=== PATIENT | female | born 1955 | race Caucasian/White ===

== ENCOUNTER → 2016-08-23 | Outpatient (REF) | payer BC | LOC: M LAB REF 18:16 | PROVIDERS: ATTEND Physician Assistant Medical | DX: J11.1 Influenza due to unidentified influenza virus with other respiratory manifestations (principal) ==

== ENCOUNTER → 2016-12-16 | Outpatient (CLI) | payer BC ==
[~2016-12-16] VITALS: Ht 154.9 cm; Wt 54.4 kg
[~2016-12-16] MED LIST: BLAC40CA2 PO; CALC600T21 PO; FISH1360 PO; LIDOCAINE 2% INJ 100 MG/5 ML SDV (FOR ANES.) As Ordered ONE; MAGN1TAB25 PO; NS 1,000 ML IV ONE; OMEP40CA2 PO; PRAV1TAB39 PO; PRIL20CA9 PO; PROPOFOL 500 MG/50 ML VIAL As Ordered ONE; PROTANDIM PO; SODI650T PO; VITA-122 PO; VITA100T20 PO; VITATAB11 PO
--- NOTE | 2016-12-16 09:56 | ROOR ---
Patient Name: Jessica Cisse Procedure Date: 12/16/2016 9:40 AM Date of : 1955 Age: 61 Room: [facility] Gender: Female Note Status: Finalized Procedure: Upper Endoscopy + Biopsies Indications: Heartburn, Failure to respond to medical treatment Providers: Shabbir Parson MD Referring MD: DENISE HANSON NP Requesting Provider: Medicines: Monitored Anesthesia Care Complications: No immediate complications. Procedure: Pre-Anesthesia Assessment: - The heart rate, respiratory rate, oxygen saturations, blood pressure, adequacy of pulmonary ventilation, and response to care were monitored throughout the procedure. The Endoscope was introduced through the mouth, and advanced to the second part of duodenum. The upper GI endoscopy was accomplished without difficulty. The patient tolerated the procedure well. Findings: The Z-line was variable and was found 40 cm from the incisors. Multiple biopsies were obtained with cold forceps for evaluation to rule out Gallagher's Esophagus randomly at the gastroesophageal junction. Mucosal changes including feline appearance were found in the middle third of the esophagus. Biopsies were taken with a cold forceps for histology. Verification of patient identification for the specimen was done. No other significant abnormalities were identified in a careful examination of the stomach. The exam of the duodenum was otherwise normal. Impression: - Z-line variable, 40 cm from the incisors. - Esophageal mucosal changes suggestive of eosinophilic esophagitis. Biopsied. - Multiple biopsies were obtained at the gastroesophageal junction. - The examination was otherwise normal. Recommendation: - Patient has a contact number available for emergencies. The signs and symptoms of potential delayed complications were discussed with the patient. Return to normal activities tomorrow. Written discharge instructions were provided to the patient. - High fiber diet. - Discharge patient to home. - Continue present medications. - Await pathology results. - Telephone GI clinic for pathology results in 1 week. - Return to referring physician. - The findings and recommendations were discussed with the patient's family. - Check Portal Online for Path Results.([email or web address]) Shabbir Parson MD Shabbir Parson MD 12/16/2016 9:56:44 AM This report has been signed electronically. Number of Addenda: 0 Note Initiated On: 12/16/2016 9:40 AM Estimated Blood Loss: Estimated blood loss: none.
--- NOTE | 2016-12-16 10:14 | ROOR ---
Patient Name: Jessica Cisse Procedure Date: 12/16/2016 9:41 AM Date of : 1955 Age: 61 Room: [facility] Gender: Female Note Status: Finalized Procedure: Total Colonoscopy to Cecum Indications: Family history of colonic polyps in a first-degree relative Providers: Shabbir Parson MD Referring MD: DENISE HANSON NP Requesting Provider: Medicines: Monitored Anesthesia Care Complications: No immediate complications. Procedure: Pre-Anesthesia Assessment: - The heart rate, respiratory rate, oxygen saturations, blood pressure, adequacy of pulmonary ventilation, and response to care were monitored throughout the procedure. The Colonoscope was introduced through the anus and advanced to the cecum, identified by appendiceal orifice and ileocecal valve. The colonoscopy was performed without difficulty. The patient tolerated the procedure well. The quality of the bowel preparation was excellent. Findings: The perianal and digital rectal examinations were normal. No other significant abnormalities were identified in a careful examination of the remainder of the colon. The exam was otherwise without abnormality on direct and retroflexion views. Impression: - The examination was otherwise normal on direct and retroflexion views. - No specimens collected. - The exam was otherwise normal to the cecum. Recommendation: - Patient has a contact number available for emergencies. The signs and symptoms of potential delayed complications were discussed with the patient. Return to normal activities tomorrow. Written discharge instructions were provided to the patient. - High fiber diet. - Discharge patient to home. - Continue present medications. - Repeat colonoscopy in 5 years for screening purposes. - Return to referring physician. - The findings and recommendations were discussed with the patient's family. Shabbir Parson MD Shabbir Parson MD 12/16/2016 10:14:08 AM This report has been signed electronically. Number of Addenda: 0 Note Initiated On: 12/16/2016 9:41 AM Estimated Blood Loss: Estimated blood loss: none.
[2016-12-16 10:30] VITALS: BP 128/70
== END ==
LOC: M OPP 08:25
PROVIDERS: ATTEND Internal Medicine Gastroenterology
DX: Z12.11 Encounter for screening for malignant neoplasm of colon (principal); Z83.71 Family history of colonic polyps; K22.8 Other specified diseases of esophagus; K20.9 Esophagitis, unspecified; R12 Heartburn; K21.9 Gastro-esophageal reflux disease without esophagitis; E78.5 Hyperlipidemia, unspecified; K87 Disorders of gallbladder, biliary tract and pancreas in diseases classified elsewhere; R31.9 Hematuria, unspecified; Z87.891 Personal history of nicotine dependence

== ENCOUNTER → 2017-01-16 | Outpatient (REF) | payer BC ==
[~2017-01-16] MED LIST changes: -CALC600T21 PO; +CALC600T60 PO; -LIDOCAINE 2% INJ 100 MG/5 ML SDV (FOR ANES.) As Ordered ONE; -NS 1,000 ML IV ONE; -PROPOFOL 500 MG/50 ML VIAL As Ordered ONE
== END ==
LOC: M SFHCWAGY 15:20
PROVIDERS: ATTEND Nurse Practitioner Women's Health
DX: Z12.4 Encounter for screening for malignant neoplasm of cervix (principal)

== ENCOUNTER → 2017-01-21 | Outpatient (CLI) | payer BC ==
--- NOTE | 2017-01-21 14:26 | REP ---
Pelvic ultrasound including transabdominal and endovaginal ultrasound assessment: The bladder is adequately distended. The uterus is retroverted and normal to small size measuring 5.5 x 2.4 by 4.0 cm. The endometrium is not thickened measuring 3.4 mm. The ovaries are normal size. Right ovary measures 2.2 x 1.2 x 1.1 cm. There is a 1 cm right ovarian follicle. Left ovary measures 1.8 by 0.9 x 1.2 cm. There are no dominant ovarian masses or cyst. There is no free fluid. Impression: Retroverted uterus. Otherwise, negative pelvic ultrasound. The right ovary is normal size. There is a 1 cm right ovarian follicle. There is no dominant mass or cyst.
== END ==
LOC: M WHC 12:58
PROVIDERS: ATTEND Nurse Practitioner Women's Health
DX: N83.8 Other noninflammatory disorders of ovary, fallopian tube and broad ligament (principal); Z87.42 Personal history of other diseases of the female genital tract

== ENCOUNTER → 2017-01-22 | Outpatient (REF) | payer BC | LOC: M SFHCWAGY 12:28 | PROVIDERS: ATTEND Nurse Practitioner Women's Health | DX: N83.201 Unspecified ovarian cyst, right side (principal); Z78.0 Asymptomatic menopausal state ==

== ENCOUNTER → 2017-04-28 | Outpatient (CLI) | payer BC ==
--- NOTE | 2017-04-28 16:12 | REP ---
LEFT KNEE SERIES: Five views of the left knee are performed. There is no acute fracture or dislocation. There is mild medial joint space narrowing with subchondral sclerosis. There is mild superior patellar spurring. I do not see a significant joint effusion. IMPRESSION: Mild degenerative changes. Signed by Tyron Ross MD 04/28/2017 04:37 P
== END ==
LOC: M WUC 15:12
PROVIDERS: ATTEND Physician Assistant
DX: M25.562 Pain in left knee (principal); M17.12 Unilateral primary osteoarthritis, left knee

== ENCOUNTER → 2017-07-23 | Outpatient (CLI) | payer BC | LOC: M WHC 14:12 | DX: R10.2 Pelvic and perineal pain (principal); N83.201 Unspecified ovarian cyst, right side; Z78.0 Asymptomatic menopausal state; Z87.42 Personal history of other diseases of the female genital tract | CPT/HCPCS: 76830 ==

== ENCOUNTER → 2018-01-20 | Outpatient (REF) | payer BC | LOC: M SFHCWAGY 10:30 | DX: Z12.4 Encounter for screening for malignant neoplasm of cervix (principal) | CPT/HCPCS: G0123 ==

== ENCOUNTER → 2018-05-15 | Outpatient (CLI) | payer BC | LOC: M WHC 14:47 | DX: Z12.31 Encounter for screening mammogram for malignant neoplasm of breast (principal); Z92.89 Personal history of other medical treatment; Z92.0 Personal history of contraception; Z92.29 Personal history of other drug therapy; Z80.3 Family history of malignant neoplasm of breast | CPT/HCPCS: 77067 ==

== ENCOUNTER 2019-01-19 12:24 | Day surgery (SDC) | payer BC ==
[~2019-01-19] VITALS: Ht 154.9 cm; Wt 52.6 kg
[~2019-01-19 12:24] MED LIST changes: +CARA1TAB6 PO; +CVS1CAP2 PO; -MAGN1TAB25 PO; +MAGN1TAB26 PO; +MULTCAP PO; +OMEP20CA4 PO; -VITA100T20 PO; +VITA100T51 PO
[2019-01-19] MEDS ORDERED: NS 1,000 ML IV ONE (13:00)
[2019-01-19] MEDS ORDERED: LIDOCAINE 2% INJ 100 MG/5 ML SDV (FOR ANES.) As Ordered ONE (13:44)
[2019-01-19] MEDS ORDERED: PROPOFOL 200 MG/20 ML VIAL As Ordered ONE ×2 (13:44→14:25)
--- NOTE | 2019-01-19 14:10 | ROOR ---
Patient Name: Jessica Cisse Procedure Date: 01/19/2019 1:43 PM Date of : 1955 Age: 63 Room: [facility] Gender: Female Note Status: Finalized Procedure: Upper GI endoscopy Indications: Epigastric abdominal pain, Heartburn Providers: Aakash TRENT MD Referring MD: DENISE HANSON NP Requesting Provider: Medicines: Monitored Anesthesia Care Complications: No immediate complications. Procedure: Pre-Anesthesia Assessment: - The heart rate, respiratory rate, oxygen saturations, blood pressure, adequacy of pulmonary ventilation, and response to care were monitored throughout the procedure. The Endoscope was introduced through the mouth, and advanced to the second part of duodenum. The upper GI endoscopy was accomplished without difficulty. The patient tolerated the procedure well. Findings: The examined esophagus was normal. Small Hiatal Hernia. The Z-line was regular and was found 40 cm from the incisors. The entire examined stomach was normal. The examined duodenum was normal. The MOTT capsule with delivery system was introduced through the mouth and advanced into the esophagus, such that the MOTT pH capsule was positioned 35 cm from the incisors, which was 5 cm proximal to the GE junction. The MOTT pH capsule was then deployed and attached to the esophageal mucosa. The delivery system was then withdrawn. Endoscopy was utilized for probe placement and diagnostic evaluation. The scope was reinserted to evaluate placement of the MOTT capsule. Visualization showed the MOTT capsule to be in an appropriate position. Impression: - Normal esophagus. - Small Hiatal Hernia. - Z-line regular, 40 cm from the incisors. - Normal stomach. - Normal examined duodenum. - No specimens collected. Recommendation: - Telephone endoscopist for study results in 2 weeks. - Instructions: Avoid all reflux medications for next 48 hrs. (i.e. Avoid all the following for the next 48 hours: Prilosec/Omeprazole, Nexium, Prevacid/Lansoprazole, Dexilant, Zegerid/Omeprazole, Aciphex/Rabeprazole, Protonix/Pantoprazole, Zantac/Ranitidine, Pepcid/Famotidine, Tagamet). You may take tums, rolaids or maalox for severe symptoms, but try to limit this as well. Do not try to avoid your usual triggers for your symptoms for next 48 hrs. (If you have known "triggers" for your symptoms such as caffeine, fatty foods, laying down after meals etc, it is actually encouraged that you do try to produce your symptoms as much as possible over next 48 hrs.) Aakash Trent MD Aakash TRENT MD 01/19/2019 2:09:55 PM Electronically signed by Aakash TRENT MD Number of Addenda: 0 Note Initiated On: 01/19/2019 1:43 PM Estimated Blood Loss: Estimated blood loss: none. Estimated blood loss: none.
[2019-01-19 14:25] VITALS: BP 120/70
== END 2019-01-19 14:41 | disposition home or self-care (01) ==
LOC: M OPP 12:24
PROVIDERS: ATTEND Internal Medicine Gastroenterology
DX: K44.9 Diaphragmatic hernia without obstruction or gangrene (principal); R10.13 Epigastric pain; K21.9 Gastro-esophageal reflux disease without esophagitis; Z79.899 Other long term (current) drug therapy; Z91.040 Latex allergy status

== ENCOUNTER → 2019-07-01 | Outpatient (CLI) | payer BC ==
[~2019-07-01] MED LIST changes: +OMEP-172 PO; -OMEP20CA4 PO; -OMEP40CA2 PO; +OMEP40CA97 PO
--- NOTE | 2019-07-01 09:01 | REPMRS ---
Patient History The patient states she had a clinical breast exam in January 2019.Family history of breast cancer at age 50 or over in paternal aunt, breast cancer at age 81 in mother. Benign excisional biopsy of the left breast, 1993. Took hormonal contraceptives for 20 years. Took unspecified hormones for 5 years. 3D TOMOSYNTHESIS WAS PERFORMED. The [facility] lifetime risk for breast cancer is 14.8%. Digital Woman Screen Mammo: July 01, 2019 - Exam #: [id number] Bilateral CC and MLO view(s) were taken. Technologist: Evelyn Main, Technologist Prior study comparison: May 15, 2018, bilateral digital woman screen mammo performed at [facility]. May 14, 2017, digital woman screen mammo performed at [facility]. FINDINGS: The breast tissue is heterogeneously dense. This may lower the sensitivity of mammography. There has been no change in the appearance of the mammogram from the prior studies. There is a moderate amount of residual fibroglandular tissue which is fairly symmetric. There is no interval development of dominant mass, areas of architectural distortion, or clustered microcalcification typical of malignancy. Assessment: BI-RADS/ACR category 1 mammogram. Negative Mammogram. Recommendation Routine screening mammogram in 1 year (for women over age 40). This mammogram was interpreted with the aid of an FDA-approved computer-aided dectection system. Electronically Signed By: Tyron Ross MD 07/01/19 0901
== END ==
LOC: M WHC 07:51
PROVIDERS: ATTEND Nurse Practitioner Women's Health
DX: Z12.31 Encounter for screening mammogram for malignant neoplasm of breast (principal); Z92.0 Personal history of contraception

== ENCOUNTER → 2020-01-25 | Outpatient (REF) | payer BC ==
[~2020-01-25] MED LIST changes: -OMEP-172 PO; +OMEP1CAP73 PO
== END ==
LOC: M SFHCWAGY 09:22
PROVIDERS: ATTEND Nurse Practitioner Women's Health
DX: Z12.4 Encounter for screening for malignant neoplasm of cervix (principal); N95.2 Postmenopausal atrophic vaginitis

== ENCOUNTER → 2020-07-03 | Outpatient (CLI) | payer BC ==
--- NOTE | 2020-07-03 09:00 | REPMRS ---
Patient History The patient states she had a clinical breast exam in January 2020. Family history of breast cancer at age 50 or over in paternal aunt, breast cancer at age 81 in mother. Benign excisional biopsy of the left breast, 1993. Took hormonal contraceptives for 20 years. Took unspecified hormones for 5 years. Digital Woman Screen Mammo: July 03, 2020 - Exam #: [id number] Bilateral CC and MLO view(s) were taken. Technologist: RT Bertha Prior study comparison: July 01, 2019, bilateral digital woman screen mammo performed at [facility]. May 15, 2018, bilateral digital woman screen mammo performed at [facility]. May 14, 2017, digital woman screen mammo performed at [facility]. FINDINGS: The breast tissue is heterogeneously dense. This may lower the sensitivity of mammography. The [employer] volumetric breast density category is: C. There is a moderate amount of heterogeneously dense fibroglandular tissue which is fairly symmetric. There is no interval development of dominant mass, architectural distortion, or grouped microcalcification typical of malignancy. There has been no change in the appearance of the mammogram from the prior studies. 3-D tomosynthesis shows no additional findings. Assessment: BI-RADS/ACR category 1 mammogram. Negative Mammogram. Recommendation Routine screening mammogram of both breasts in 1 year (for women over age 40). This patient's [facility] Lifetime Breast Cancer RIsk is estimated at 14.3 %. This mammogram was interpreted with the aid of an FDA-approved computer-aided dectection system. Electronically Signed By: Javier De La Rosa MD 07/03/20 0978
== END ==
LOC: M WHC 07:57
PROVIDERS: ATTEND Nurse Practitioner Women's Health
DX: Z12.31 Encounter for screening mammogram for malignant neoplasm of breast (principal)

== ENCOUNTER → 2021-08-27 | Outpatient (CLI) | payer BC ==
[~2021-08-27] MED LIST changes: +OMEP40CA4 PO; -OMEP40CA97 PO
== END ==
LOC: M WHC 10:30
PROVIDERS: ATTEND Registered Nurse
DX: Z12.31 Encounter for screening mammogram for malignant neoplasm of breast (principal)

== ENCOUNTER → 2021-11-14 | Outpatient (CLI) | payer BC ==
[~2021-11-14] MED LIST changes: +FAMO1TAB11 PO; +PRAV20TA2 PO; +VITMTA PO
== END ==
LOC: M LABSMTC 10:32
PROVIDERS: ATTEND Anesthesiology
DX: Z01.812 Encounter for preprocedural laboratory examination (principal); Z20.822 Contact with and (suspected) exposure to COVID-19

== ENCOUNTER → 2021-12-26 | Outpatient (CLI) | payer BC ==
[~2021-12-26] MED LIST changes: +CALCTAB38 PO; +OMEP40CA5 PO
== END ==
LOC: M LABSMTC 09:53
PROVIDERS: ATTEND Anesthesiology
DX: Z01.818 Encounter for other preprocedural examination (principal); Z11.52 Encounter for screening for COVID-19

== ENCOUNTER 2021-12-31 11:34 | Day surgery (SDC) | payer BC ==
[~2021-12-31] VITALS: Ht 154.9 cm; Wt 51.6 kg
[~2021-12-31 11:34] MED LIST changes: +NS 1,000 ML IV ONE
[2021-12-31] MEDS ORDERED: propofoL 200 MG/20 ML VIAL As Ordered ONE (14:21)
[2021-12-31 15:10] VITALS: BP 122/75
== END 2021-12-31 15:18 | disposition home or self-care (01) ==
LOC: M OPP 11:34
PROVIDERS: ATTEND Internal Medicine Gastroenterology
DX: Z12.11 Encounter for screening for malignant neoplasm of colon (principal); Z83.71 Family history of colonic polyps; Q43.8 Other specified congenital malformations of intestine; K64.8 Other hemorrhoids; K44.9 Diaphragmatic hernia without obstruction or gangrene; R12 Heartburn; Z79.02 Long term (current) use of antithrombotics/antiplatelets; Z79.899 Other long term (current) drug therapy; Z91.041 Radiographic dye allergy status; Z87.891 Personal history of nicotine dependence

== ENCOUNTER → 2022-08-29 | Outpatient (CLI) | payer BC ==
[~2022-08-29] MED LIST changes: -NS 1,000 ML IV ONE
== END ==
LOC: M WHC 09:35
PROVIDERS: ATTEND Advanced Practice Midwife
DX: Z12.31 Encounter for screening mammogram for malignant neoplasm of breast (principal)

== ENCOUNTER → 2022-11-11 | Outpatient (CLI) | payer BC | LOC: M WUC 12:11 | PROVIDERS: ATTEND Internal Medicine | DX: D51.9 Vitamin B12 deficiency anemia, unspecified (principal) ==

== ENCOUNTER → 2023-08-12 | Outpatient (CLI) | payer BC, MEDICARE ==
[2023-08-12 16:31] LABS: PLATELET COUNT, AUTOMATED 236 10^3/uL (150-450)
[2023-08-12 17:30] LABS: INR 1.03; PROTHROMBIN TIME 13.2 SECONDS (12.5-14.5)
== END ==
LOC: M WUC 13:47
PROVIDERS: ATTEND Physician Assistant
DX: Z01.818 Encounter for other preprocedural examination (principal); Z79.01 Long term (current) use of anticoagulants

== ENCOUNTER → 2023-09-25 | Outpatient (REF) | payer MEDICARE | LOC: M PLALAB 10:05 | PROVIDERS: ATTEND Advanced Practice Midwife | DX: Z12.4 Encounter for screening for malignant neoplasm of cervix (principal) | CPT/HCPCS: 87624; G0123 ==

== ENCOUNTER → 2023-09-25 | Outpatient (CLI) | payer MEDICARE | LOC: M WHC 09:11 | PROVIDERS: ATTEND Advanced Practice Midwife | DX: Z12.31 Encounter for screening mammogram for malignant neoplasm of breast (principal) ==

== ENCOUNTER → 2023-09-25 | Outpatient (CLI) | payer MEDICARE | LOC: M WHC 09:12 | PROVIDERS: ATTEND Advanced Practice Midwife | DX: M81.0 Age-related osteoporosis without current pathological fracture (principal); M85.851 Other specified disorders of bone density and structure, right thigh; M85.852 Other specified disorders of bone density and structure, left thigh; Z13.820 Encounter for screening for osteoporosis ==

== ENCOUNTER → 2024-10-06 | Outpatient (CLI) | payer MEDICARE | LOC: M WHC 09:15 | PROVIDERS: ATTEND Advanced Practice Midwife | DX: Z12.31 Encounter for screening mammogram for malignant neoplasm of breast (principal) ==

== ENCOUNTER → 2024-10-19 | Outpatient (CLI) | payer MEDICARE | LOC: M WUC 12:33 | PROVIDERS: ATTEND Internal Medicine | DX: D51.9 Vitamin B12 deficiency anemia, unspecified (principal) ==

== ENCOUNTER 2025-04-12 12:25 | Day surgery (SDC) | payer MEDICARE ==
[~2025-04-12] VITALS: Ht 154.9 cm; Wt 53.4 kg
[~2025-04-12 12:25] MED LIST changes: +DICY1CAP8 PO; -PRAV20TA2 PO; +PRAV20TA78 PO; +THERTAB52 PO
[2025-04-12 13:28] VITALS: TEMP 98.8
[2025-04-12] MEDS ORDERED: LIDOCAINE 2% 100 MG/5 ML SDV (FOR ANES.) As Ordered ONE (13:32)
[2025-04-12 13:42] VITALS: BP 131/76; O2SAT 98
== END 2025-04-12 13:49 | disposition home or self-care (01) ==
LOC: M OPP 12:25
PROVIDERS: ATTEND Internal Medicine Gastroenterology
DX: K44.9 Diaphragmatic hernia without obstruction or gangrene (principal); R12 Heartburn; Z91.040 Latex allergy status; Z79.899 Other long term (current) drug therapy

== ENCOUNTER → 2025-04-27 | Outpatient (CLI) | payer MEDICARE | LOC: M WUC 09:04 | PROVIDERS: ATTEND Internal Medicine | DX: M21.612 Bunion of left foot (principal); M19.072 Primary osteoarthritis, left ankle and foot; M20.12 Hallux valgus (acquired), left foot ==